=== PATIENT | female | born 1965 | race African-American/Black ===

== ENCOUNTER 2019-06-17 13:00 | Emergency (ER) | payer OTHER ==
[2019-06-17 13:31] VITALS: BP 138/87
[2019-06-17] MEDS ORDERED: cefTRIAXone VIAL(*) 1,000 MG VIAL IM ONE ×3 (13:42→13:56)
[2019-06-17] MEDS ORDERED: Acetaminophen TAB* 325 MG PO ONE (13:48)
--- NOTE | 2019-06-17 13:48 | UC ---
Skin Complaint HPI - HPI Summary HPI Summary: Pt presents with c/o of "boil" on left inner thigh that she states the "boil" began ~ 1 week ago. Pt has been soaking in epsom salts baths, applying warm heat to area and then fell asleep over night with heating pad - History of Current Complaint Chief Complaint: UCSkin Time Seen by Provider: 06/17/19 13:20 Stated Complaint: SKIN COMPLAINT Hx Obtained From: Patient ?: No Onset/Duration: Gradual Onset, Lasting Days - 7, Still Present Skin Exposure Onset/Duration: Days Ago Timing: Constant Onset Severity: Moderate Current Severity: Severe Pain Intensity: 9 Character: Raised, Painful Aggravating Factor(s): Touch Alleviating Factor(s): Nothing Associated Signs & Symptoms: Positive: Tenderness - Allergy/Home Medications Allergies/Adverse Reactions: Allergies Allergy/AdvReac Type Severity Reaction Status Date / Time No Known Allergies Allergy Verified 06/17/19 13:18 Home Medications: Home Medications Ibuprofen TAB* [Advil TAB*] 400 mg PO Q6H PRN 06/17/19 [History Confirmed ] Sulfamethox/Trimethoprim DS* [Bactrim DS 800/160 TAB*] 1 tab PO BID #20 tab [Rx] cephALEXin [Keflex] 500 mg PO Q4H #40 capsule 06/17/19 [Rx] PMH/Surg Hx/FS Hx/Imm Hx Previously Healthy: Yes - Surgical History Surgical History: None - Family History Known Family History: Positive: Cardiac Disease - Social History Occupation: Works From/At Home Lives: With Family Alcohol Use: None Substance Use Type: None Smoking Status (MU): Never Smoked Tobacco Have You Smoked in the Last Year: No Review of Systems All Other Systems Reviewed And Are Negative: Yes Constitutional: Positive: Negative Skin: Positive: Other - swelling, tenderness, Eyes: Positive: Negative ENT: Positive: Negative Respiratory: Positive: Negative Cardiovascular: Positive: Negative Gastrointestinal: Positive: Negative Genitourinary: Positive: Negative Motor: Positive: Negative Neurovascular: Positive: Negative Musculoskeletal: Positive: Negative Neurological/Mental Status: Positive: Negative Psychological: Positive: Negative Is Patient Immunocompromised?: No Physical Exam Triage Information Reviewed: Yes Appearance: Pain Distress Vital Signs: Initial Vital Signs Temp 100.6 F 06/17/19 13:19 Pulse 102 06/17/19 13:19 Resp 16 03/22/20 13:19 BP 138/87 06/17/19 13:19 Pulse Ox 100 06/17/19 13:19 Vital Signs Reviewed: Yes Eye Exam: Normal ENT: Positive: Hearing grossly normal Respiratory: Positive: No respiratory distress Cardiovascular: Positive: Tachycardia Musculoskeletal: Positive: Edema @ - left inner thigh, firm tender non Neurological Exam: Normal Psychological Exam: Normal Skin Exam: Other - large, firm tender area ~ 7 cmX 6 cm left inner proximal thigh. no area of drainage, Course/Dx - Differential Diagnoses - Skin Complaint Differential Diagnoses: Abscess, Cellulitis - Diagnoses Provider Diagnosis: Abscess Discharge ED - Sign-Out/Discharge Documenting (check all that apply): Patient Departure All imaging exams completed and their final reports reviewed: No Studies - Discharge Plan Condition: Stable Disposition: HOME Prescriptions: cephALEXin [Keflex] 500 mg PO Q4H #40 capsule Sulfamethox/Trimethoprim DS* [Bactrim DS 800/160 TAB*] 1 tab PO BID #20 tab Patient Education Materials: Abscess (ED) Referrals: No Primary Care Phys,NOPCP [Primary Care Provider] - Jose Wooten MD [Medical Doctor] - If Needed [facility] [place] [facility]IAN REFERRAL [Outside] - If Needed Additional Instructions: Please follow up with your PCP as needed. If your symptoms worsen please seek medical care immediately. - Billing Disposition and Condition Condition: STABLE Disposition: Home
[2019-06-17] MEDS ORDERED: Lidocaine 1% MPF* 2 ML VIAL ONE (13:51)
[2019-06-17] MEDS ORDERED: cefTRIAXone VIAL(*) 1,000 MG VIAL IVPB ONE (13:54)
[2019-06-17] MEDS ORDERED: Lidocaine 1% MPF* 2 ML VIAL INJ ONE (13:55)
== END 2019-06-17 14:25 | disposition home or self-care (01) ==
LOC: UCCORT 13:00
DX: L02.416 Cutaneous abscess of left lower limb (principal)
CPT/HCPCS: 96372; 99202; A9270-GY; G0463; J0696